=== PATIENT | female | born 1970 | race Caucasian/White ===

== ENCOUNTER 2022-09-14 13:15 | Emergency (ER) | payer OTHER, SELFPAY ==
[2022-09-14 13:31] VITALS: BP 123/74; PULSE 86; RESP 18; O2SAT 99
--- NOTE | 2022-09-14 14:00 | DI.RAD_ITS ---
Exam(s) XR KNEE RT 3V AP,LAT,JENNYFER EXAM: XR KNEE RT 3V AP,LAT,JENNYFER CLINICAL HISTORY: injury. TECHNIQUE: 2D digital imaging was performed. COMPARISON: No exams were available for comparison FINDINGS: 3 views No evidence of acute fracture but there does appear to be a joint effusion which may signify an inter nal derangement. Bone density normal. No joint space narrowing but there appears to be a probable d egenerative subarticular cyst in inner aspect of the medial femoral condyle. Measures approximately 6 x 5 mm. Tibial plateau appears unremarkable. IMPRESSION: No fracture or joint space narrowing. Other findings as above. Joint effusion. Probable internal d erangement. DATA REPOSITORY: RADIATION DOSE DELIVERED:
--- NOTE | 2022-09-14 14:11 | ED.GENADUL_ITS ---
Discharge Plan Disposition Patient Disposition: Home Condition: Stable Discharge Details Clinical Impression: Acute knee pain, Internal derangement of knee Primary Care Provider: [place] [place] ED Provider: Magen Wolf Home Meds and New Rx's Prescriptions: New tramadol 50 mg tablet 50 mg PO BID PRN (Reason: pain) Qty: 10 0RF No Action milk thistle 150 mg Capsule 150 mg PO DAILY Discharge Instructions Instructions: Knee Pain (ED) Discharge Data Discharge Date/Time-TO BE ENTERED AT DEPARTURE: 09/14/22 15:19 HPI General Date/Time Provider Initiated Documentation: 09/14/22 14:00 . HPI Narrative: 52 year old female presents to the ED with c/o R knee pain. She says that she initially 'torked' her knee a couple months ago. It hurt for a day or 2 then was ok. 2 days ago she was kneeling down looking under a bed, stating her knees were flexed all the way under her, and she could not straighten it. she says that it felt like a there was something keeping her from straightening it. No more recent injury. No numbness/tingling. She says that it is better if she holds it slightly flexed, but cannot bear weight. She is travelling for the summer, camping, and not from the area. Related Data Home Medications Medication Instructions Recorded Confirmed milk thistle 150 mg capsule 150 mg PO DAILY 09/14/22 09/14/22 tramadol 50 mg tablet 50 mg PO BID PRN pain #10 tabs 09/14/22 Previous Rx's Medication Instructions Recorded tramadol 50 mg tablet 50 mg PO BID PRN pain #10 tabs 09/14/22 Allergies Allergy/AdvReac Type Severity Reaction Status Date / Time codeine AdvReac Skin Rash Unverified 09/14/22 13:39 General Stated Complaint: Orthopedic JESSICA: 3 Review of Systems Narrative: CONST: no fever or chills EXTR: no swelling NEURO: No focal weakness PFSH All Active Problems (Updated 09/14/22 @ 14:55 by Magen Wolf MD) Acute knee pain (Acute) Internal derangement of knee (Acute) Social History Smoking/Tobacco Use Status: Never Smoking risk assessment performed?: Yes Drug use: Occasionally Substance use type: marijuana Details: THC gummies Housing: other Do you feel safe at home: Yes Do you feel safe in your relationship?: Yes Exam Narrative Exam Narrative: Const: well appearing, no acute distress HEENT: normocephalic, atraumatic; MMM Ext: well perfused. R knee without swelling or effusion, non-tender along joint line. NVI, calf soft, ankle FROM. Neuro: non-focal Skin: no rashes Course 52 yo female presents to the ED with c/o R knee pain, remote injury, worse pain 2 days ago after having knee bent under herself while looking under furniture. Suspect she may have meniscus tear that is causing her sx's. Ordered xray, although discussed that if it is meniscus then she will need MRI to see that, as well as other ligamentous structures in her knee, and not something to ED typically orders. Reevaluation(s) Initial Evaluation: Xrays neg, she will find ortho to f/u. Pain meds as needed. Vital Signs Vital signs: Vital Signs Pulse 86 09/14/22 13:31 Respiratory Rate 18 09/14/22 13:31 Blood Pressure 123/74 09/14/22 13:31 Pulse Oximetry 99 09/14/22 13:31 Pulse 86 09/14/22 13:31 Respiratory Rate 18 09/14/22 13:31 Respiratory Effort Normal, Non-Labored 09/14/22 13:36 Blood Pressure 123/74 09/14/22 13:31 Blood Pressure Position Sitting 09/14/22 13:31 Pulse Oximetry 99 09/14/22 13:31 Oxygen Delivery Method Room Air 09/14/22 13:31 Oxygen Flow Rate 0 09/14/22 13:31 Pain Level 3 09/14/22 13:31 Comment worse with movement 09/14/22 13:31
== END 2022-09-14 15:19 | disposition home or self-care (01) ==
PROVIDERS: Emergency Provider Emergency Medicine
DX: M25.561 Pain in right knee (principal); M25.461 Effusion, right knee; M23.91 Unspecified internal derangement of right knee
CPT/HCPCS: 73562; 99283